=== PATIENT | female | born 1970 | race Caucasian/White ===

== ENCOUNTER 2021-04-26 05:04 | Observation (INO) ==
[2021-04-26] MEDS ORDERED: Naloxone 0.4 MG/ML INJ IVP PRN (07:27)
[2021-04-26] MEDS ORDERED: Perflutren Lipid Microsphere 1.3 ML in 0.9 % Sodium Chloride 8.7 ML IVP PRN (07:30)
[2021-04-26] MEDS ORDERED: *HR* Heparin 5,000 UNIT/ML VIAL IVP PRN ×2 (08:25)
[2021-04-26] MEDS ORDERED: *HR* Heparin 5,000 UNIT/ML VIAL IVP ONE (08:25)
[2021-04-26 08:50] LABS: Hematocrit 38.5 % (35.3-44.9); Hemoglobin 12.4 g/dL (11.5-15.4); Mean Corpuscular HGB Conc 32.2 g/dL (31.6-35.5); Mean Corpuscular Hemoglobin 28.2 pg (28.0-33.3); Mean Corpuscular Volume 87.5 fL (83.0-100.0); Mean Platelet Volume 10.3 fL (9.4-12.4); Platelet Count 242 K/mcL (140-400); Red Cell Distribution Width 13.3 % (11.5-14.5); White Blood Count 6.5 K/mcL (4.3-11.1)
[2021-04-26 08:58] LABS: Heparin anti-factor XA UFH 0.32 IU/mL (0.30-0.70); Prothrombin Time 11.5 Seconds (9.4-12.1)
[2021-04-26 09:10] LABS: Chol/HDL Ratio 2.8 (0-4.9)
[2021-04-26] MEDS: Heparin 25,000UNIT/250ML 1/2NS 25,000 UNIT/250 ML IV.SOLN IVC SCH (09:24)
[2021-04-26] MEDS: Acetaminophen 325 MG TABLET PO PRN ×2 (11:08→19:25)
[2021-04-26 12:49] LABS: Estimated Average Glucose 114 mg/dl; Hemoglobin A1C 5.6 %
[2021-04-27 02:59] LABS: Basophils % 0.4 %; Eosinophils # 0.3 K/mcL (0.0-0.6); Eosinophils % 4.6 %; Hematocrit 37.8 % (35.3-44.9); Hemoglobin 12.4 g/dL (11.5-15.4); Immature Granulocytes % 0.3 % (0-4); Lymphocytes % 44.6 %; Mean Corpuscular HGB Conc 32.8 g/dL (31.6-35.5); Mean Corpuscular Hemoglobin 29.4 pg (28.0-33.3); Mean Corpuscular Volume 89.6 fL (83.0-100.0); Mean Platelet Volume 10.5 fL (9.4-12.4); Monocytes # 0.6 K/mcL (0.0-1.3); Monocytes % 8.1 %; Neutrophils # 2.9 K/mcL (1.6-8.9); Platelet Count 238 K/mcL (140-400); Red Blood Count 4.22 M/mcL (3.82-4.97); Red Cell Distribution Width 13.5 % (11.5-14.5); White Blood Count 6.8 K/mcL (4.3-11.1)
[2021-04-27 03:13] LABS: BUN/Creatinine Ratio 18 (6-26); Blood Urea Nitrogen 18 mg/dL (6-20); Calcium 8.9 mg/dL (8.6-10.3); Carbon Dioxide 24 mEq/L (23-29); Chloride 108 mEq/L (98-107); Glucose 106 mg/dL (70-105); Osmolality,Calculated 288 (280-300); Potassium 3.6 mEq/L (3.5-5.1); Sodium 138 mEq/L (136-145); eGFR For African Americans > 60 (> 60); eGFR For Non-African Americans 58 (> 60)
[2021-04-27] MEDS: Aspirin 81 MG TAB.CHEW PO SCH (09:20)
[2021-04-27 10:02] LABS: Magnesium 2.2 mg/dL (1.6-2.6)
[2021-04-27] MEDS: Heparin 25,000UNIT/250ML 1/2NS 25,000 UNIT/250 ML IV.SOLN IVC SCH (10:14)
[2021-04-27 10:16] LABS: Thyroid Stimulating Hormone 3.489 mcIU/mL (0.340-5.600)
[2021-04-27] MEDS ORDERED: Ketorolac 15 MG/ML VIAL IVP ONE (11:20)
[2021-04-27] MEDS: *HR* Heparin 5,000 UNIT/ML VIAL SQ SCH (17:18)
[2021-04-27] MEDS: Nitroglycerin 0.4 MG TAB.SUBL SL PRN ×2 (18:07→18:53)
[2021-04-27] MEDS ORDERED: Morphine Sulfate 2 MG/ML SYRINGE IVP PRN (18:16)
[2021-04-27] MEDS ORDERED: *HR* Metoprolol 5 MG/5 ML VIAL IVP ONE (18:55)
[2021-04-27] MEDS: *HR* Metoprolol 5 MG/5 ML VIAL IVP ONE ×2 (18:57→19:14)
[2021-04-27] MEDS ORDERED: *HR* LORazepam 2 MG/ML VIAL IVP ONE (19:06)
[2021-04-28] MEDS: *HR* Heparin 5,000 UNIT/ML VIAL SQ SCH (05:18)
[2021-04-28] MEDS: Aspirin 81 MG TAB.CHEW PO SCH (09:17)
[2021-04-28 11:17] VITALS: BP 121/77
== END 2021-04-28 11:52 | disposition home or self-care (01) ==
LOC: 3BNU → SUATTDRO 06:57
PROVIDERS: ADMIT Family Medicine; ATTEND Internal Medicine